=== PATIENT | male | born 2000 | race Caucasian/White ===

== ENCOUNTER 2022-04-02 09:49 | Emergency (ER) | payer SELFPAY ==
[2022-04-02] MEDS: Sodium Chloride 0.9% 1,000 ML IV SCH (10:33)
[2022-04-02] MEDS: Ketorolac 15 MG/ML SDV IVPUSH ONE (10:34)
[2022-04-02] MEDS: Acetaminophen 500 MG Tab PO ONE (10:35)
[2022-04-02] MEDS: Ondansetron 4 MG/2 ML SDV IVPUSH ONE (10:35)
[2022-04-02 10:42] LABS: ANION GAP 11.4 meq/L (7-15); CHLORIDE,CL 100 mmol/L (98-107); SODIUM,NA 137 mmol/L (136-145)
[2022-04-02 10:43] LABS: ESTIMATED GFR 115 mL/min (>=60)
[2022-04-02 10:58] LABS: CORONAVIRUS COVID-19 NAA NEGATIVE (NEGATIVE); RESPIRATORY SYNCYTIAL VIR NAA NEGATIVE (NEGATIVE)
[2022-04-02] MEDS: Iopamidol 612 MG/ML 100 ML Bottle IVPUSH ONE (11:17)
[2022-04-02] MEDS: Sodium Chloride 0.9% 10 ML Syringe FLUSH PRN (12:08)
[2022-04-02] MEDS: Ampicillin/Sulbactam Na 3 GM in Sodium Chloride 0.9% 100 ML IV ONE (12:08)
[2022-04-02] MEDS: Iopamidol 612 MG/ML 100 ML Bottle ONE (14:50)
== END 2022-04-02 17:00 | disposition home or self-care (01) ==
LOC: LL.ED 09:49
DX: J03.90 Acute tonsillitis, unspecified (principal); Z20.822 Contact with and (suspected) exposure to COVID-19
CPT/HCPCS: 0241U; 36415; 70491; 80053; 85025; 86140; 86308; 87081; 87430; 96361; 96365; 96375; 99283; 99284-25; A9270-GY; J0295; J1885; J2405; J3490; J7030; Q9967